=== PATIENT | male | born 1980 | race Caucasian/White ===

== ENCOUNTER 2018-03-31 08:04 | Emergency (ER) | payer OTHER ==
[2018-03-31] MEDS ORDERED: KETOROLAC 30 MG/ML INJ ONE (08:26)
[2018-03-31] MEDS ORDERED: NA CHLORIDE 0.9% 1,000 ML ONE (08:26)
[2018-03-31 08:33] LABS: Absolute Lymphocytes (CBC) 2.4 K/uL (0.7-4.9); Absolute Monocytes 0.5 K/uL (0.1-1.3); Absolute Neutrophil 3.3 K/uL (1.8-8.0); Basophils % 0.7 % (0-1.3); Eosinophils % 2.9 % (0-4.4); Hematocrit 46.2 % (39.6-49.0); Lymphocytes % 36.8 % (15.3-44.8); MCH 30.1 pg (27.0-35.0); MCV 86.3 fL (80-100); MPV 7.9 fL (7.6-11.3); Monocytes % 7.8 % (3.3-12.3); RBC Red Blood Cell Count 5.36 M/uL (4.33-5.43)
[2018-03-31] MEDS ORDERED: FENTANYL CITR 100 MCG/2 ML ONE (08:39)
[2018-03-31 08:48] LABS: Potassium 3.5 mmol/L (3.5-5.1)
--- NOTE | 2018-03-31 10:27 | RAD REPORT ---
EXAM DESCRIPTION: US - Renal Ultrasound-Limited - 03/31/2018 9:28 am CLINICAL HISTORY: Right flank pain COMPARISON: CT study March 19 FINDINGS: Limited ultrasound was performed of the right kidney and bladder. The right kidney measures 11.9 x 6.1 x 5.3 cm. Renal cortical thickness and echogenicity are normal. Mild right-sided hydronephrosis is present new or progressive from the March 19 CT study. No susp icious solid or cystic mass identified. No bladder wall thickening or mass. No intraluminal stone or mass. Bladder volume was 413 milliliters. IMPRESSION: Mild right-sided hydronephrosis new or progressive from March 19 CT imaging. No urinary bladder abnormality.
[2018-03-31 11:13] LABS: Urine Bacteria NONE SEEN /HPF (NONE SEEN); Urine Culture Reflex Order NOT NEEDED
--- NOTE | 2018-03-31 11:29 | ER ---
Nurse's Notes [facility] Name: Reymundo Reece Age: 37 yrs Sex: Male : 1980 Arrival Date: 03/31/2018 Time: 08:05 Bed 19 Private MD: Sahil Wooten Diagnosis: Calculus of kidney and ureter;Hydronephrosis with renal and ureteral calculous obstruction Presentation: 03/31 08:10 Presenting complaint: Patient states: Pt. was seen on March [address] done, rb1 it showed that he had kidney stones without any blockage. Transition of care: patient was not received from another setting of care. Onset of symptoms was March 31, 2018 at 07:00. Risk Assessment: Do you want to hurt yourself or someone else? Patient reports no desire to harm self or others. Initial Sepsis Screen: Does the patient meet any 2 criteria? No. Patient's initial sepsis screen is negative. Does the patient have a suspected source of infection? No. Patient's initial sepsis screen is negative. Care prior to arrival: Medication(s) given: Tramadol 50 mg PO and Tamsulosin 0.4 mg were taken at 0715. 08:10 Method Of Arrival: Ambulatory rb1 08:10 Acuity: KIM 3 rb1 Triage Assessment: 08:10 General: Appears uncomfortable, Behavior is calm, cooperative, Denies fever. Pain: rb1 Complains of pain in right lower quadrant Pain radiates to right groin Pain currently is 10 out of 10 on a pain scale. Pain began 0700 this morning. Neuro: Level of Consciousness is awake, alert, obeys commands, Oriented to person, place, time, situation. Cardiovascular: Capillary refill < 3 seconds is brisk in bilateral fingers. Respiratory: Airway is patent Respiratory effort is even, unlabored, Respiratory pattern is regular, symmetrical. GI: No signs and/or symptoms were reported involving the gastrointestinal system. : No signs and/or symptoms were reported regarding the genitourinary system. Derm: Skin is pink, warm \T\ dry. 08:10 GI: Reports nausea. rb1 Historical: - Allergies: 08:10 No Known Allergies; rb1 - Home Meds: 08:10 tramadol 50 mg Oral tab 1 tab every 6 hours [Active]; tamsulosin 0.4 mg oral cp24 1 cap rb1 once daily [Active]; - PMHx: 08:10 Kidney stones; rb1 - PSHx: 08:10 right shoulder; rb1 - Immunization history:: Adult Immunizations up to date. - Social history:: Smoking status: Patient/guardian denies using tobacco. - Ebola Screening: : Patient negative for fever greater than or equal to 101.5 degrees Fahrenheit, and additional compatible Ebola Virus Disease symptoms. Screenin:10 Abuse screen: Denies threats or abuse. Tuberculosis screening: No symptoms or risk rb1 factors identified. Fall Risk None identified. 08:30 Nutritional screening: No deficits noted. ss Assessment: 08:20 General: Appears uncomfortable, Behavior is cooperative, restless. Pain: Pain currently em is 10 out of 10 on a pain scale. Quality of pain is described as sharp, shooting, Pain began 2 hours ago. Neuro: Level of Consciousness is awake, alert, obeys commands, Oriented to person, place, time, situation. Cardiovascular: Patient's skin is warm and dry. Respiratory: Airway is patent Respiratory effort is even, unlabored, Respiratory pattern is tachypnea. GI: Abdomen is flat, Bowel sounds present X 4 quads. Abd is soft X 4 quads Abdomen is tender to palpation X 4 quads. : No signs and/or symptoms were reported regarding the genitourinary system. EENT: No signs and/or symptoms were reported regarding the EENT system. Derm: Skin is intact, Skin is clammy, Skin is normal. Musculoskeletal: Range of motion: intact in all extremities. 08:30 General: The previous assessment is accurate, call light remains within reach. Spouse ss at bedside. . 08:50 Reassessment: Patient appears in no apparent distress at this time. Patient and/or em family updated on plan of care and expected duration. Pain level reassessed. Patient is alert, oriented x 3, equal unlabored respirations, skin warm/dry/pink. rates pain 3/10 Patient states feeling better. Patient states symptoms have improved. 09:25 Reassessment: Patient appears in no apparent distress at this time. Patient and/or em family updated on plan of care and expected duration. Pain level reassessed. Patient is alert, oriented x 3, equal unlabored respirations, skin warm/dry/pink. currently does not want pain medication, reports pain is tolerable at 3/10, provider notified, will continue to monitor Patient states feeling better. 11:12 Reassessment: Patient appears in no apparent distress at this time. Patient and/or em family updated on plan of care and expected duration. Pain level reassessed. Patient is alert, oriented x 3, equal unlabored respirations, skin warm/dry/pink. Patient states feeling better. Vital Signs: 08:16 BP 140 / 90; Pulse 69; Resp 22; Temp 97.7(O); Pulse Ox 100% on R/A; Weight 92.99 kg; em Height 5 ft. 10 in. (177.80 cm) (R); Pain 10/10; 08:51 BP 119 / 90; Pulse 58; Resp 18; Pulse Ox 100% on R/A; Pain 3/10; em 09:53 BP 115 / 77; Pulse 77; Resp 16; Pulse Ox 100% on R/A; Pain 3/10; em 11:13 BP 120 / 77; Pulse 68; Resp 18; Pulse Ox 97% on R/A; em 08:16 Body Mass Index 29.42 (92.99 kg, 177.80 cm) em ED Course: 08:05 Patient arrived in ED. sb2 08:05 Sahil Wooten MD is Private Physician. sb2 08:09 Casper Lucas MD is Attending Physician. gs 08:10 Arm band placed on right wrist. rb1 08:10 Patient has correct armband on for positive identification. Bed in low position. Call rb1 light in reach. Side rails up X 1. Pulse ox on. NIBP on. Warm blanket given. 08:13 Destinee Curtis, RN is Primary Nurse. rb1 08:20 Initial lab(s) drawn, by me, sent to lab. Inserted saline lock: 20 gauge in left em antecubital area, using aseptic technique. Blood collected. 08:23 Triage completed. rb1 09:16 Ultrasound completed. Patient tolerated well. sg3 09:18 US Rp Exam Limited In Process Unspecified. EDMS 11:28 Russ Swift MD is Referral Physician. gs 11:50 No provider procedures requiring assistance completed. IV discontinued, intact, em bleeding controlled, No redness/swelling at site. Pressure dressing applied. Administered Medications: 08:21 Drug: TORadol 30 mg Route: IVP; Site: left antecubital; ss 08:39 Follow up: Response: No adverse reaction; Pain is decreased em 08:24 Drug: NS 0.9% 1000 ml Route: IV; Rate: 1 bolus; Site: left antecubital; ss 10:18 Drug: fentaNYL (PF) 25 mcg Route: IVP; Site: left antecubital; ss 10:55 Follow up: Response: No adverse reaction; Pain is decreased em Outcome: 11:28 Discharge ordered by . 11:50 Discharged to home ambulatory, with family. em 11:50 Condition: good 11:50 Discharge instructions given to patient, family, Instructed on discharge instructions, follow up and referral plans. medication usage, Demonstrated understanding of instructions, follow-up care, medications, Prescriptions given X 2. 11:50 Patient left the ED. em Signatures: Dispatcher [employer] EDMS Ignacio Huddleston, LINUX UNIX ENGINEER LINUX UNIX ENGINEER em Poonam Murillo RN RN ss Barber, Rebecca, RN RN rb1 Casper Lucas MD MD Deisi Valenzuela 3 Kristie Davidson sb2 Corrections: (The following items were deleted from the chart) 08:37 08:16 BP 140 / 90; Pulse 69bpm; Resp 22bpm; Pulse Ox 100% RA; 92.99 kg; Height 5 ft. 10 em in. Reported; BMI: 29.4; Pain 10/10; rb1
--- NOTE | 2018-03-31 11:29 | EDPHYS ---
Physician Documentation [facility] Name: Reymundo Reece Age: 37 yrs Sex: Male : 1980 Arrival Date: 03/31/2018 Time: 08:05 Bed 19 Private MD: Sahil Wooten ED Physician Casper Lucas HPI: 03/31 11:25 This 37 yrs old Male presents to ER via Ambulatory with complaints of gs Possible Kidney Stone. 11:25 The patient complains of pain in the right low back. Onset: The symptoms/episode gs began/occurred suddenly, today. Modifying factors: The symptoms are alleviated by nothing. the symptoms are aggravated by nothing. Associated signs and symptoms: Pertinent positives: nausea. Severity of pain: At its worst the pain was moderate in the emergency department the pain is unchanged. The patient has experienced a previous episode, last week. The patient has been recently seen by a physician: Dr. granado. Historical: - Allergies: 08:10 No Known Allergies; rb1 - Home Meds: 08:10 tramadol 50 mg Oral tab 1 tab every 6 hours [Active]; tamsulosin 0.4 mg oral cp24 1 cap rb1 once daily [Active]; - PMHx: 08:10 Kidney stones; rb1 - PSHx: 08:10 right shoulder; rb1 - Immunization history:: Adult Immunizations up to date. - Social history:: Smoking status: Patient/guardian denies using tobacco. - Ebola Screening: : Patient negative for fever greater than or equal to 101.5 degrees Fahrenheit, and additional compatible Ebola Virus Disease symptoms. ROS: 11:25 Constitutional: Negative for fever. gs 11:25 Abdomen/GI: Negative for abdominal pain. 11:25 All other systems are negative. Exam: 11:25 Head/Face: Normocephalic, atraumatic. Eyes: Pupils equal round and reactive to light, gs extra-ocular motions intact. Lids and lashes normal. Conjunctiva and sclera are non-icteric and not injected. Cornea within normal limits. Periorbital areas with no swelling, redness, or edema. 11:25 ENT: Nares patent. No nasal discharge, no septal abnormalities noted. Tympanic membranes are normal and external auditory canals are clear. Oropharynx with no redness, swelling, or masses, exudates, or evidence of obstruction, uvula midline. Mucous membranes moist. Neck: Trachea midline, no thyromegaly or masses palpated, and no cervical lymphadenopathy. Supple, full range of motion without nuchal rigidity, or vertebral point tenderness. No Meningismus. Chest/axilla: Normal chest wall appearance and motion. Nontender with no deformity. No lesions are appreciated. Cardiovascular: Regular rate and rhythm with a normal S1 and S2. No gallops, murmurs, or rubs. Normal PMI, no JVD. No pulse deficits. Respiratory: Lungs have equal breath sounds bilaterally, clear to auscultation and percussion. No rales, rhonchi or wheezes noted. No increased work of breathing, no retractions or nasal flaring. Abdomen/GI: Soft, non-tender, with normal bowel sounds. No distension or tympany. No guarding or rebound. No evidence of tenderness throughout. Skin: Warm, dry with normal turgor. Normal color with no rashes, no lesions, and no evidence of cellulitis. MS/ Extremity: Pulses equal, no cyanosis. Neurovascular intact. Full, normal range of motion. Neuro: Awake and alert, GCS 15, oriented to person, place, time, and situation. Cranial nerves II-XII grossly intact. Motor strength 5/5 in all extremities. Sensory grossly intact. Cerebellar exam normal. Normal gait. 11:25 Constitutional: The patient appears alert, awake. 11:25 Constitutional: The patient appears uncomfortable. 11:25 Back: pain, that is moderate, of the right mid back. Vital Signs: 08:16 BP 140 / 90; Pulse 69; Resp 22; Temp 97.7(O); Pulse Ox 100% on R/A; Weight 92.99 kg; em Height 5 ft. 10 in. (177.80 cm) (R); Pain 10/10; 08:51 BP 119 / 90; Pulse 58; Resp 18; Pulse Ox 100% on R/A; Pain 3/10; em 09:53 BP 115 / 77; Pulse 77; Resp 16; Pulse Ox 100% on R/A; Pain 3/10; em 11:13 BP 120 / 77; Pulse 68; Resp 18; Pulse Ox 97% on R/A; em 08:16 Body Mass Index 29.42 (92.99 kg, 177.80 cm) em MDM: 08:15 Patient medically screened. gs 11:25 Differential diagnosis: nephrolithiasis, pyelonephritis, UTI. Data reviewed: vital gs signs, nurses notes. Counseling: I had a detailed discussion with the patient and/or guardian regarding: the historical points, exam findings, and any diagnostic results supporting the discharge/admit diagnosis, lab results, radiology results, the need for outpatient follow up, a urologist. Response to treatment: the patient's symptoms have resolved after treatment, the patient's condition has returned to base line. 03/31 08:20 Order name: CBC with Diff; Complete Time: 09:28 gs 03/31 08:20 Order name: Basic Metabolic Panel; Complete Time: 09:28 gs 03/31 08:20 Order name: Urine Microscopic Only; Complete Time: 11:31 gs 03/31 08:28 Order name: US Rp Exam Limited; Complete Time: 10:41 gs 03/31 10:15 Order name: Urine Dipstick--Ancillary (enter results); Complete Time: 11:31 eb 03/31 08:20 Order name: Urine Dipstick-Ancillary (obtain specimen); Complete Time: 10:18 gs Administered Medications: 08:21 Drug: TORadol 30 mg Route: IVP; Site: left antecubital; ss 08:39 Follow up: Response: No adverse reaction; Pain is decreased em 08:24 Drug: NS 0.9% 1000 ml Route: IV; Rate: 1 bolus; Site: left antecubital; ss 10:18 Drug: fentaNYL (PF) 25 mcg Route: IVP; Site: left antecubital; ss 10:55 Follow up: Response: No adverse reaction; Pain is decreased em Disposition: 03/31/18 11:28 Discharged to Home. Impression: Calculus of kidney and ureter, Hydronephrosis with renal and ureteral calculous obstruction. - Condition is Stable. - Discharge Instructions: Kidney Stones, Hydronephrosis. - Prescriptions for Naprosyn 500 mg Oral Tablet - take 1 tablet by ORAL route 2 times per day take with food; 20 tablet. Tylenol- Codeine #4 300-60 mg Oral Tablet - take 1 tablet by ORAL route every 6 hours As needed; 12 tablet. - Medication Reconciliation Form, Thank You Letter, Antibiotic Education, Prescription Opioid Use form. - Follow up: Russ Swift MD; When: 2 - 3 days; Reason: Re-evaluation by your physician. Signatures: Dispatcher [employer] EDIgnacio Farrar, CHURN DRILLER CHURN DRILLER em Poonam Murillo RN RN ss Destinee Curtis RN RN rb1 Casper Lucas MD MD gs Corrections: (The following items were deleted from the chart) 11:50 11:28 03/31/2018 11:28 Discharged to Home. Impression: Calculus of kidney and ureter; em Hydronephrosis with renal and ureteral calculous obstruction. Condition is Stable. Forms are Medication Reconciliation Form, Thank You Letter, Antibiotic Education, Prescription Opioid Use. Follow up: Russ Swift; When: 2 - 3 days; Reason: Re-evaluation by your physician. gs
[2018-03-31 11:31] LABS: Urine Blood 1+ (NEG); Urine Glucose NEGATIVE (NEG); Urine Protein NEGATIVE (NEG); Urine Specific Gravity 1.015 (1.005-1.030)
== END 2018-03-31 11:50 | disposition home or self-care (01) ==
LOC: ER 08:04
DX: N13.2 Hydronephrosis with renal and ureteral calculous obstruction (principal)
CPT/HCPCS: 36415; 76775; 80048; 81003; 81015; 85025; 96374; 96375; 99284; J3010; J7030

== ENCOUNTER 2020-02-22 07:32 | Emergency (ER) | payer OTHER ==
--- NOTE | 2020-02-22 08:07 | ER ---
Nurse's Notes [facility] Name: Reymundo Reece Age: 39 yrs Sex: Male : 1980 Arrival Date: 02/22/2020 Time: 07:37 Bed 7 Private MD: Diagnosis: Contusion of right knee;Pain in right knee-strain Presentation: 02/21 07:48 Chief complaint: Patient states: got kicked in the right knee by a cow 1 week ago, em reports swelling and pain afterwards, ambulated to the room. Coronavirus screen: Client denies travel out of the [place] in the last 14 days. Ebola Screen: Patient negative for fever greater than or equal to 101.5 degrees Fahrenheit, and additional compatible Ebola Virus Disease symptoms Patient denies exposure to infectious person. Patient denies travel to an Ebola-affected area in the 21 days before illness onset. No symptoms or risks identified at this time. Initial Sepsis Screen: Does the patient meet any 2 criteria? No. Patient's initial sepsis screen is negative. Does the patient have a suspected source of infection? No. Patient's initial sepsis screen is negative. Risk Assessment: Do you want to hurt yourself or someone else? Patient reports no desire to harm self or others. Onset of symptoms was February 15, 2020. 07:48 Method Of Arrival: Ambulatory em 07:48 Acuity: KIM 4 em Historical: - Allergies: 07:51 No Known Allergies; em - PMHx: 07:51 Kidney stones; em - PSHx: 07:51 None; em - Immunization history:: Flu vaccine is not up to date. - Social history:: Smoking status: Patient denies any tobacco usage or history of. - Family history:: not pertinent. Screenin:41 Abuse screen: Denies threats or abuse. Nutritional screening: No deficits noted. em Tuberculosis screening: No symptoms or risk factors identified. Fall Risk None identified. Assessment: 07:41 General: Appears in no apparent distress. comfortable, Behavior is calm, cooperative, em appropriate for age. Pain: Complains of pain in right knee Pain currently is 4 out of 10 on a pain scale. Neuro: Level of Consciousness is awake, alert, obeys commands, Oriented to person, place, time, situation, Appropriate for age. Cardiovascular: Capillary refill < 3 seconds Patient's skin is warm and dry. Respiratory: Airway is patent Respiratory effort is even, unlabored, Respiratory pattern is regular, symmetrical. GI: Abdomen is flat. Derm: Skin is intact, is healthy with good turgor, Skin is pink, warm \T\ dry. Musculoskeletal: Range of motion: intact in all extremities, Swelling present in right knee. 08:05 Reassessment: x-ray at bedside. em 08:08 Reassessment: pt up for discharge, pending x-ray results. em Vital Signs: 07:48 BP 131 / 84; Pulse 71; Resp 18; Temp 98.1; Pulse Ox 98% on R/A; Weight 97.52 kg; Height em 5 ft. 11 in. (180.34 cm); Pain 4/10; 07:48 Body Mass Index 29.99 (97.52 kg, 180.34 cm) em ED Course: 07:37 Patient arrived in ED. mr 07:41 Ignacio Huddleston, RN is Primary Nurse. em 07:41 Patient has correct armband on for positive identification. Placed in gown. Bed in low em position. Call light in reach. Adult w/ patient. Pulse ox on. NIBP on. 07:42 Freddy Nichols MD is Attending Physician. jose m 07:42 Arm band placed on. em 07:50 Triage completed. em 08:06 Trevor Self MD is Referral Physician. jose m 08:14 Knee Right 3 View XRAY In Process Unspecified. EDMS 08:32 No provider procedures requiring assistance completed. Patient did not have IV access em during this emergency room visit. Administered Medications: 08:01 Drug: Motrin 800 mg Route: PO; em 08:30 Follow up: Response: No adverse reaction em 08:01 Drug: Garrison 10 mg-325 mg 1 tabs Route: PO; em 08:30 Follow up: Response: No adverse reaction; Marked relief of symptoms; Pain is decreased em Outcome: 08:06 Discharge ordered by . jose m 08:32 Discharged to home ambulatory, with family. em 08:32 Condition: stable 08:32 Discharge instructions given to patient, family, Instructed on discharge instructions, follow up and referral plans. medication usage, Demonstrated understanding of instructions, follow-up care, medications, Prescriptions given X 3. 08:36 Patient left the ED. em Signatures: Dispatcher [employer] EDMI Simone, Freddy, MD MD jose m Gamble, Olesya Ignacio Ovalle, RN RN em
--- NOTE | 2020-02-22 08:07 | EDPHYS ---
Physician Documentation [facility] Name: Reymundo Reece Age: 39 yrs Sex: Male : 1980 Arrival Date: 02/22/2020 Time: 07:37 Bed 7 Private MD: ED Physician Freddy Nichols HPI: 02/21 07:59 This 39 yrs old Male presents to ER via Ambulatory with complaints of Knee jose m Injury. 07:59 The patient presents with decreased range of motion, pain, swelling, tenderness. The jose m complaints affect the lateral aspect of right knee, medial aspect of right knee and right knee. Context: The problem was sustained outdoors, resulted from kicked by a steer. Onset: The symptoms/episode began/occurred last week. Modifying factors: The symptoms are alleviated by elevating leg, remaining still, the symptoms are aggravated by movement, weight bearing, bending knee. Associated signs and symptoms: Pertinent positives: swelling. Treatment prior to arrival includes: no previous treatment. Severity of symptoms: At their worst the symptoms were mild, moderate, in the emergency department the symptoms have improved, mildly. The patient has not experienced similar symptoms in the past. Historical: - Allergies: 07:51 No Known Allergies; em - PMHx: 07:51 Kidney stones; em - PSHx: 07:51 None; em - Immunization history:: Flu vaccine is not up to date. - Social history:: Smoking status: Patient denies any tobacco usage or history of. - Family history:: not pertinent. ROS: 07:59 Constitutional: Negative for fever, chills, and weight loss, Eyes: Negative for injury, jose m pain, redness, and discharge, ENT: Negative for injury, pain, and discharge, Neck: Negative for injury, pain, and swelling, Cardiovascular: Negative for chest pain, palpitations, and edema, Respiratory: Negative for shortness of breath, cough, wheezing, and pleuritic chest pain, Abdomen/GI: Negative for abdominal pain, nausea, vomiting, diarrhea, and constipation, Back: Negative for injury and pain, : Negative for injury, bleeding, discharge, and swelling, Skin: Negative for injury, rash, and discoloration, Neuro: Negative for headache, weakness, numbness, tingling, and seizure, Psych: Negative for depression, anxiety, suicide ideation, homicidal ideation, and hallucinations, Allergy/Immunology: Negative for hives, rash, and allergies, Endocrine: Negative for neck swelling, polydipsia, polyuria, polyphagia, and marked weight changes, Hematologic/Lymphatic: Negative for swollen nodes, abnormal bleeding, and unusual bruising. 07:59 MS/extremity: Positive for decreased range of motion, pain, swelling, of the lateral aspect of right knee, medial aspect of right knee and right knee. Exam: 07:59 Constitutional: This is a well developed, well nourished patient who is awake, alert, jose m and in no acute distress. Head/Face: Normocephalic, atraumatic. Eyes: Pupils equal round and reactive to light, extra-ocular motions intact. Lids and lashes normal. Conjunctiva and sclera are non-icteric and not injected. Cornea within normal limits. Periorbital areas with no swelling, redness, or edema. ENT: Nares patent. No nasal discharge, no septal abnormalities noted. Tympanic membranes are normal and external auditory canals are clear. Oropharynx with no redness, swelling, or masses, exudates, or evidence of obstruction, uvula midline. Mucous membranes moist. Neck: Trachea midline, no thyromegaly or masses palpated, and no cervical lymphadenopathy. Supple, full range of motion without nuchal rigidity, or vertebral point tenderness. No Meningismus. Chest/axilla: Normal chest wall appearance and motion. Nontender with no deformity. No lesions are appreciated. Cardiovascular: Regular rate and rhythm with a normal S1 and S2. No gallops, murmurs, or rubs. Normal PMI, no JVD. No pulse deficits. Respiratory: Lungs have equal breath sounds bilaterally, clear to auscultation and percussion. No rales, rhonchi or wheezes noted. No increased work of breathing, no retractions or nasal flaring. Abdomen/GI: Soft, non-tender, with normal bowel sounds. No distension or tympany. No guarding or rebound. No evidence of tenderness throughout. Back: No spinal tenderness. No costovertebral tenderness. Full range of motion. Male : Normal genitalia with no discharge or lesions. Skin: Warm, dry with normal turgor. Normal color with no rashes, no lesions, and no evidence of cellulitis. Neuro: Awake and alert, GCS 15, oriented to person, place, time, and situation. Cranial nerves II-XII grossly intact. Motor strength 5/5 in all extremities. Sensory grossly intact. Cerebellar exam normal. Normal gait. Psych: Awake, alert, with orientation to person, place and time. Behavior, mood, and affect are within normal limits. 07:59 Musculoskeletal/extremity: ROM: full active range of motion, full passive range of motion, Circulation is intact in all extremities. Sensation intact. Compartment Syndrome exam of affected extremity: is normal. Joints: the right knee displays pain at rest, painful range of motion, swelling, tenderness, Weight bearing: able to fully bear weight, DVT Exam: negative Homans' sign noted on exam, no appreciated bluish discoloration, no erythema, no increased warmth, pain, swelling, tenderness. 08:15 Musculoskeletal/extremity: Tendon exam: specific tendon testing normal through active jose m and passive range of motion pain on palpation of lateral collateral liagament, albaro negative, no effision. Vital Signs: 07:48 BP 131 / 84; Pulse 71; Resp 18; Temp 98.1; Pulse Ox 98% on R/A; Weight 97.52 kg; Height em 5 ft. 11 in. (180.34 cm); Pain 4/10; 07:48 Body Mass Index 29.99 (97.52 kg, 180.34 cm) em MDM: 07:42 Patient medically screened. [facility] 08:04 Differential diagnosis: closed fracture, contusion, tendonitis. Data reviewed: vital jose m signs, nurses notes, radiologic studies, plain films. Data interpreted: hospital monitor: not applicable for this patient encounter. rate is 71 beats/min, rhythm is normal sinus rhythm, Pulse oximetry: on room air is 98 %. Test interpretation: by ED physician or midlevel provider: plain radiologic studies. Counseling: I had a detailed discussion with the patient and/or guardian regarding: the historical points, exam findings, and any diagnostic results supporting the discharge/admit diagnosis, radiology results, the need for outpatient follow up, for definitive care, a orthopedic surgeon. 02/21 07:48 Order name: Knee Right 3 View XRAY [facility] 02/21 07:48 Order name: Crutch Training; Complete Time: 08:01 jose m 02/21 07:49 Order name: Knee Immobilizer; Complete Time: 08:02 [facility] Administered Medications: 08:01 Drug: Motrin 800 mg Route: PO; em 08:30 Follow up: Response: No adverse reaction em 08:01 Drug: Trilla 10 mg-325 mg 1 tabs Route: PO; em 08:30 Follow up: Response: No adverse reaction; Marked relief of symptoms; Pain is decreased em Disposition: 02/22/20 08:06 Discharged to Home. Impression: Contusion of right knee, Pain in right knee - strain. - Condition is Stable. - Discharge Instructions: Joint Pain, How to Use a Knee Brace, Musculoskeletal Pain, Knee Pain, Cryotherapy, [id number], Cryotherapy, Knee Pain, [id number], Joint Pain, [id number]. - Prescriptions for Ibuprofen 600 mg Oral Tablet - take 1 tablet by ORAL route every 6 hours As needed take with food; 30 tablet. Tylenol- Codeine #3 300-30 mg Oral Tablet - take 2 tablet by ORAL route every 6 hours As needed; 30 tablet. - Medication Reconciliation Form, Thank You Letter, Antibiotic Education, Prescription Opioid Use form. - Follow up: Private Physician; When: 2 - 3 days; Reason: Recheck today's complaints, Continuance of care, Re-evaluation by your physician. Follow up: Trevor Self MD; When: 2 - 3 days; Reason: Recheck today's complaints, Re-evaluation by your physician. - Problem is new. - Symptoms have improved. Signatures: Dispatcher [employer] Freddy Keller MD MD cha Munoz, Edgar RN RN em Corrections: (The following items were deleted from the chart) 08:02 07:48 Ice pack ordered. [facility] em 08:36 08:06 02/22/2020 08:06 Discharged to Home. Impression: Contusion of right knee; Pain in em right knee - strain. Condition is Stable. Forms are Medication Reconciliation Form, Thank You Letter, Antibiotic Education, Prescription Opioid Use. Follow up: Private Physician; When: 2 - 3 days; Reason: Recheck today's complaints, Continuance of care, Re-evaluation by your physician. Follow up: Trevor Self; When: 2 - 3 days; Reason: Recheck today's complaints, Re-evaluation by your physician. Problem is new. Symptoms have improved. jose m
[2020-02-22] MEDS ORDERED: HYDROCODONE/APAP 10/325 TAB ONE (08:09)
[2020-02-22] MEDS ORDERED: IBUPROFEN 400 MG TAB ONE (08:09)
[2020-02-22 08:46] VITALS: BP 131/84; TEMP 98.1; O2SAT 98
--- NOTE | 2020-02-22 09:30 | RAD REPORT ---
EXAM DESCRIPTION: RAD - Knee Right 3 View - 02/22/2020 8:14 am CLINICAL HISTORY: Right knee pain status post injury FINDINGS: No fracture or dislocation is seen.
== END 2020-02-22 08:36 | disposition home or self-care (01) ==
LOC: ER 07:32
DX: S80.01XA Contusion of right knee, initial encounter (principal); W55.82XA Struck by other mammals, initial encounter; Y93.89 Activity, other specified; Y92.89 Other specified places as the place of occurrence of the external cause
CPT/HCPCS: 99284

== ENCOUNTER → 2023-04-05 | Emergency (ER) | payer BC ==
--- NOTE | 2023-04-05 13:06 | RAD REPORT ---
EXAM DESCRIPTION: US - Scrotum Testicles - 04/05/2023 12:48 pm CLINICAL HISTORY: Testicular pain COMPARISON: None FINDINGS: Right testicle measures 4.2 x 2.1 x 2.6 centimeters. Echotexture is homogeneous. Normal bl ood flow Left testicle measures 4 x 1.8 x 2.8 centimeters. Echotexture is mildly inhomogeneous. Normal blood f low The epididymides are normal in size and echotexture. Normal blood flow is seen. Bilateral varicocele IMPRESSION: Bilateral varicoceles
--- NOTE | 2023-04-05 13:50 | ER ---
Nurse's Notes [facility] Name: Reymundo Reece Age: 43 yrs Sex: Male : 1980 Arrival Date: 04/05/2023 Time: 11:54 Bed 2 Private MD: Bird Castro V Diagnosis: Right testicular pain Presentation: 04/05 12:00 Chief complaint: Patient states: R GROIN PAIN FROM R FLANK. Coronavirus screen: At this bp time, the client does not indicate any symptoms associated with coronavirus-19. Ebola Screen: No symptoms or risks identified at this time. Initial Sepsis Screen: Does the patient meet any 2 criteria? No. Patient's initial sepsis screen is negative. Does the patient have a suspected source of infection? No. Patient's initial sepsis screen is negative. Risk Assessment: Do you want to hurt yourself or someone else? Patient reports no desire to harm self or others. Onset of symptoms is unknown. 12:00 Method Of Arrival: Ambulatory bp 12:00 Acuity: KIM 3 bp Triage Assessment: 12:00 General: Appears in no apparent distress. Behavior is calm, cooperative, appropriate bp for age. Pain: Complains of pain in groin and right femoral area. Historical: - Allergies: 11:58 No Known Allergies; ll1 - PMHx: 11:58 Kidney stones; ll1 - Immunization history:: Adult Immunizations up to date. - Social history:: Smoking status: Patient denies any tobacco usage or history of. Screenin:09 [facility] ED Fall Risk Assessment (Adult) History of falling in the last 3 months, ld1 including since admission No falls in past 3 months (0 pts). Abuse screen: Denies threats or abuse. Denies injuries from another. Nutritional screening: No deficits noted. Tuberculosis screening: No symptoms or risk factors identified. Assessment: 12:09 General: Appears in no apparent distress. uncomfortable, Behavior is calm, cooperative, ld1 appropriate for age. Pain: Complains of pain in pelvis and right femoral area and groin Pain does not radiate. Pain currently is 8 out of 10 on a pain scale. Quality of pain is described as throbbing, Pain began 2-3 days ago. Is continuous. Neuro: Level of Consciousness is awake, alert, obeys commands, Oriented to person, place, time, situation. Cardiovascular: Capillary refill < 3 seconds Patient's skin is warm and dry. Respiratory: Airway is patent Respiratory effort is even, unlabored. GI: Abdomen is flat, non-distended. : No signs and/or symptoms were reported regarding the genitourinary system. EENT: No signs and/or symptoms were reported regarding the EENT system. Derm: No signs and/or symptoms reported regarding the dermatologic system. Musculoskeletal: No signs and/or symptoms reported regarding the musculoskeletal system. 13:08 Reassessment: Patient appears in no apparent distress at this time. No changes from kc6 previously documented assessment. Patient and/or family updated on plan of care and expected duration. Pain level reassessed. Patient is alert, oriented x 3, equal unlabored respirations, skin warm/dry/pink. Vital Signs: 12:00 BP 132 / 93; Pulse 64; Resp 16; Temp 98; Pulse Ox 100% ; Weight 97.52 kg; Height 5 ft. bp 11 in. ; 12:09 BP 131 / 96; Pulse 70; Resp 18; Pulse Ox 100% on R/A; Pain 8/10; ld1 12:00 Body Mass Index 29.99 (97.52 kg, 180.34 cm) bp 12:09 Pain Scale: Adult ld1 ED Course: 11:56 Patient arrived in ED. rg4 11:56 Bird Castro MD is Private Physician. rg4 11:58 Arm band placed on Patient placed in an exam room, on a stretcher. ll1 12:01 Triage completed. bp 12:04 Kain Fontana DO is Attending Physician. ms3 12:09 Bridget Fontana RN is Primary Nurse. ld1 12:09 Patient has correct armband on for positive identification. Placed in gown. Bed in low ld1 position. Call light in reach. Side rails up X2. Pulse ox on. NIBP on. Door closed. Noise minimized. Warm blanket given. 12:09 No provider procedures requiring assistance completed. Inserted saline lock: 20 gauge ld1 in left antecubital area, using aseptic technique. Blood collected. 12:50 US Scrotum Testicles In Process Unspecified. EDMS 13:12 Crystal Nunn, AGUSTÍN is Primary Nurse. iw 13:49 Tony Schafer MD is Referral Physician. ms3 14:15 IV discontinued, intact, bleeding controlled, No redness/swelling at site. Pressure iw dressing applied. Administered Medications: No medications were administered Medication: 14:15 VIS not applicable for this client. iw Outcome: 13:49 Discharge ordered by . ms3 14:15 Discharged to home ambulatory, iw 14:15 Condition: good 14:15 Discharge instructions given to patient, Instructed on discharge instructions, follow up and referral plans. Demonstrated understanding of instructions, follow-up care, 14:15 Patient left the ED. iw Signatures: Dispatcher [employer] EDMS Crystal Nunn, RN Mariam Duong rg4 Domo Lopez RN RN bp Cecil Gilbert RN RN ll1 Kain Fontana, DO ms3 Bridget Fontana RN RN ld1 Jessie Lee RN RN kc6
--- NOTE | 2023-04-05 13:50 | EDPHYS ---
Physician Documentation [facility] Name: Reymundo Reece Age: 43 yrs Sex: Male : 1980 Arrival Date: 04/05/2023 Time: 11:54 Bed 2 Private MD: Bird Castro V ED Physician Kain Fontana HPI: 04/05 13:50 This 43 yrs old Male presents to ER via Ambulatory with complaints of Testicular Pain, ms3 Groin Pain. 13:50 43-year-old male with past medical history of kidney stones presents to the emergency ms3 department for right testicular discomfort x 1 week. Patient rates the discomfort a /10. Patient denies any alleviating or inciting factors. Patient denies penile discharge, or swelling. Historical: - Allergies: 11:58 No Known Allergies; ll1 - PMHx: 11:58 Kidney stones; ll1 - Immunization history:: Adult Immunizations up to date. - Social history:: Smoking status: Patient denies any tobacco usage or history of. ROS: 13:50 Constitutional: Negative for fever, and chills. Neck: Negative for injury, pain, and ms3 swelling, Cardiovascular: Negative for chest pain, and palpitations. Respiratory: Negative for shortness of breath, cough, wheezing, and pleuritic chest pain, Abdomen/GI: Negative for abdominal pain, nausea, vomiting, diarrhea, and constipation, 13:50 : Positive for testicular pain 13:50 All other systems are negative, Exam: 13:50 Constitutional: This is a well developed, well nourished patient who is awake, alert, ms3 and in no acute distress. Head/Face: Normocephalic, atraumatic. Neck: Trachea midline, no cervical lymphadenopathy. Supple, full range of motion without nuchal rigidity, or vertebral point tenderness. No Meningismus. Chest/axilla: Normal chest wall appearance and motion. Nontender with no deformity. Cardiovascular: Regular rate and rhythm with a normal S1 and S2. No gallops, murmurs, or rubs. Normal PMI, no JVD. No pulse deficits. Respiratory: Lungs have equal breath sounds bilaterally, clear to auscultation and percussion. No rales, rhonchi or wheezes noted. No increased work of breathing, no retractions or nasal flaring. Abdomen/GI: Soft, non-tender, with normal bowel sounds. No distension or tympany. No guarding or rebound. No evidence of tenderness throughout. Skin: Warm, dry with normal turgor. Normal color with no rashes, no lesions, and no evidence of cellulitis. 13:50 : Male external genitalia: penile discharge, is absent, swelling, is not appreciated, tenderness, of the right testicle is noted, of the epididymis area, that is mild, 13:50 : Male external genitalia: Cremasteric reflex intact, ms3 Vital Signs: 12:00 BP 132 / 93; Pulse 64; Resp 16; Temp 98; Pulse Ox 100% ; Weight 97.52 kg; Height 5 ft. bp 11 in. ; 12:09 BP 131 / 96; Pulse 70; Resp 18; Pulse Ox 100% on R/A; Pain 8/10; ld1 12:00 Body Mass Index 29.99 (97.52 kg, 180.34 cm) bp 12:09 Pain Scale: Adult ld1 MDM: 12:12 Patient medically screened. ms3 13:50 Differential diagnosis: Epididymitis versus varicocele versus hydrocele. Data reviewed: ms3 vital signs, nurses notes, radiologic studies, and as a result, I will discharge patient. Counseling: I had a detailed discussion with the patient and/or guardian regarding the historical points, exam findings, and any diagnostic results supporting the discharge/admit diagnosis, radiology results, the need for outpatient follow up, to return to the emergency department if symptoms worsen or persist or if there are any questions or concerns that arise at home. Special discussion: I discussed with the patient/guardian in detail that at this point there is no indication for admission to the hospital. It is understood, however, that if the symptoms persist or worsen the patient needs to return immediately for re-evaluation. ED course: Discussed ultrasound results with patient and his . Patient to follow-up with Dr. Schafer in 2 to 3 days. Patient understands and agrees with plan. All questions were answered. Return precautions discussed include worsening symptoms, or any other concerns. On reevaluation patient is alert and oriented x 4, no apparent distress, nontoxic-appearing, ambulatory emergency primary, speaking full sentences. 04/05 12:13 Order name: US Scrotum Testicles; Complete Time: 13:20 ms3 Administered Medications: No medications were administered Disposition Summary: 04/05/23 13:49 Discharge Ordered Notes: Location: Home ms3 Condition: Stable ms3 Diagnosis - Right testicular pain ms3 Followup: ms3 - With: Tony Schafer MD - When: 2 - 3 days - Reason: Recheck today's complaints Discharge Instructions: - Discharge Summary Sheet ms3 - Testicular Self-Exam ms3 - Varicocele ms3 Forms: - Medication Reconciliation Form ms3 - Thank You Letter ms3 - Antibiotic Education ms3 - Prescription Opioid Use ms3 - Patient Portal Instructions ms3 - Leadership Thank You Letter ms3 Signatures: Dispatcher [employer] EDDomo Bellamy RN RN bp Cecil Gilbert RN RN ll1 Kain Fontana DO DO ms3
[2023-04-05 14:35] VITALS: BP 131/96; TEMP 98; O2SAT 100
== END ==
LOC: ER 11:54
DX: N50.811 Right testicular pain (principal)
CPT/HCPCS: 76870; 99284

== ENCOUNTER 2023-09-19 07:08 | Emergency (ER) | payer BC ==
[2023-09-19 07:38] LABS: Absolute Basophils 0.1 K/uL (0-0.5); Absolute Eosinophils 0.2 K/uL (0-0.5); Absolute Lymphocytes (CBC) 1.6 K/uL (0.7-4.9); Absolute Monocytes 0.7 K/uL (0.1-1.3); Absolute Neutrophil 5.8 K/uL (1.8-8.0); Basophils % 1.2 % (0-1.3); Eosinophils % 2.4 % (0-4.4); Hemoglobin 16.2 g/dL (13.6-17.9); MCH 30.6 pg (27.0-35.0); MCV 92.7 fL (80-100); MPV 7.2 fL (7.6-11.3); Monocytes % 8.1 % (3.3-12.3); Neutrophils % 69.3 % (41.7-73.7); Nucleated Red Blood Cells % 0.1 % (0-0); Platelets 364 thou/uL (152-406); RBC Red Blood Cell Count 5.29 M/uL (4.33-5.43); Red Cell Distribution Width 13.8 % (12.1-15.2)
[2023-09-19 07:47] LABS: PT Prothrombin Time 12.9 SECONDS (9.5-12.5); Protime INR 1.18
[2023-09-19 07:58] LABS: Albumin 3.5 g/dL (3.4-5.0); Albumin/Globulin Ratio 0.9 (1.1-1.8); Anion Gap 8.9 mEq/L (5.0-15.0); Bilirubin Total 1.1 mg/dL (0.2-1.0); Globulin 3.8 g/dL (2.3-3.5); Potassium 3.9 mEq/L (3.5-5.1); Protein, Total 7.3 g/dL (6.4-8.2)
[2023-09-19] MEDS ORDERED: KETOROLAC 30 MG/ML INJ ONE (08:05)
[2023-09-19] MEDS ORDERED: NA CHLORIDE 0.9% 1,000 ML ONE (08:06)
--- NOTE | 2023-09-19 08:13 | RAD REPORT ---
EXAM DESCRIPTION: US - Extrem Venous W Compress Keith - 09/19/2023 7:43 am CLINICAL HISTORY: Pain. COMPARISON: None. TECHNIQUE: Real-time sonographic evaluation of the bilateral lower extremity deep venous systems was performed. FINDINGS: Normal compressibility, flow augmentation, phasic flow and spontaneous flow is identified in both the left and right lower extremity deep venous systems. Some prominent bowels are seen along the right popliteal vein. No intraluminal filling defects seen. IMPRESSION: No evidence of DVT in either lower extremity.
--- NOTE | 2023-09-19 08:29 | ER ---
Nurse's Notes [facility] Name: Reymundo Reece Age: 43 yrs Sex: Male : 1980 Arrival Date: 09/19/2023 Time: 07:08 Bed 13 Private MD: Diagnosis: Unspecified symptoms and signs involving the musculoskeletal system;Pain in right lower leg Presentation: 09/18 07:18 Chief complaint: Patient states: he has been having right lower calf pain for 3 days. ap3 patient reports his pain is currently a 3/10 on the pain scale. Coronavirus screen: At this time, the client does not indicate any symptoms associated with coronavirus-19. Ebola Screen: No symptoms or risks identified at this time. Initial Sepsis Screen: Does the patient meet any 2 criteria? No. Patient's initial sepsis screen is negative. Does the patient have a suspected source of infection? No. Patient's initial sepsis screen is negative. Risk Assessment: Do you want to hurt yourself or someone else? Patient reports no desire to harm self or others. Onset of symptoms was September 16, 2023. 07:18 Method Of Arrival: Ambulatory ap3 07:18 Acuity: KIM 3 ap3 Triage Assessment: 07:19 General: Appears in no apparent distress. Behavior is calm, cooperative, appropriate ap3 for age. Pain: Complains of pain in right calf Pain currently is 3 out of 10 on a pain scale. Neuro: Level of Consciousness is awake, alert, obeys commands, Oriented to person, place, time, situation, Appropriate for age. Cardiovascular: Patient's skin is warm and dry. Respiratory: Airway is patent Respiratory effort is even, unlabored, Respiratory pattern is regular, symmetrical. Historical: - Allergies: 07:19 No Known Allergies; ap3 - Home Meds: 07:19 None [Active]; ap3 - PMHx: 07:19 Kidney stones; ap3 - Immunization history:: Client reports having NOT received the Covid vaccine. - Infectious Disease History:: Denies. - Social history:: Smoking status: Patient denies any tobacco usage or history of. - Family history:: not pertinent. Screenin:20 Abuse screen: Denies threats or abuse. Nutritional screening: No deficits noted. ap3 Tuberculosis screening: No symptoms or risk factors identified. 07:45 [facility] ED Fall Risk Assessment (Adult) History of falling in the last 3 months, bp including since admission No falls in past 3 months (0 pts). Assessment: 07:30 General: Appears in no apparent distress. uncomfortable, Behavior is appropriate for bp age. 08:15 Reassessment: No changes from previously documented assessment. Patient is alert, bp oriented x 3, equal unlabored respirations, skin warm/dry/pink. Vital Signs: 07:18 BP 174 / 99; Pulse 87; Resp 18; Temp 98.8(O); Pulse Ox 99% on R/A; Weight 97.52 kg; ap3 Height 5 ft. 11 in. ; Pain 3/10; 08:15 BP 151 / 98; Pulse 86; Resp 16; Pulse Ox 95% ; bp 09:01 BP 155 / 91; Pulse 84; Resp 16; Pulse Ox 100% ; bp 07:18 Body Mass Index 29.99 (97.52 kg, 180.34 cm) ap3 07:18 Pain Scale: Adult ap3 ED Course: 07:10 Patient arrived in ED. gm2 07:12 Domo Lopez, AGUSTÍN is Primary Nurse. bp 07:13 Freddy Nichols MD is Attending Physician. jose m 07:19 Triage completed. ap3 07:20 Arm band placed on right wrist. ap3 07:26 Initial lab(s) drawn, by me, sent to lab. Inserted saline lock: 22 gauge in right bp forearm, using aseptic technique. Blood collected. 07:45 US Extremity Venous W Compression Keith In Process Unspecified. EDMS 07:45 Patient has correct armband on for positive identification. Bed in low position. bp 07:45 Urine collected: clean catch specimen, clear. bp 08:28 Michelet Dempsey MD is Referral Physician. jose m 09:02 No provider procedures requiring assistance completed. IV discontinued, intact, bp bleeding controlled, No redness/swelling at site. Pressure dressing applied. 09:03 Provided Education on: N/A. bp Administered Medications: 07:45 Drug: NS 0.9% IV 1000 ml IV at 1 bolus Per protocol; 1000 mL bolus Route: IV; Rate: 1 bp bolus; Site: right forearm; 09:03 Follow up: IV Status: Completed infusion; IV Intake: 1000ml bp 07:45 Drug: Ketorolac IVP 30 mg IVP once Route: IVP; Site: right forearm; bp 09:04 Follow up: Response: No adverse reaction bp Medication: 09:03 VIS not applicable for this client. bp Intake: :03 IV: 1000ml; Total: 1000ml. bp Outcome: : Discharge ordered by . jose m 09:02 Discharged to home ambulatory, with family, bp 09:02 Condition: stable 09:02 Discharge instructions given to patient, Instructed on discharge instructions, follow up and referral plans. medication usage, Demonstrated understanding of instructions, follow-up care, medications, Prescriptions given X 2, 09:04 Patient left the ED. bp Signatures: Dispatcher [employer] EDMS Freddy Nichols MD MD cha Peltier, Brian, RN RN bp Briseyda Dubois RN RN ap3 Kinjal Mckeon [facility]
--- NOTE | 2023-09-19 08:29 | EDPHYS ---
Physician Documentation [facility] Name: Reymundo Reece Age: 43 yrs Sex: Male : 1980 Arrival Date: 09/19/2023 Time: 07:08 Bed 13 Private MD: AMILCAR Physician Freddy Nichols HPI: 09/18 07:27 This 43 yrs old Male presents to ER via Ambulatory with complaints of CALF jose m PAIN. 07:27 The patient presents with decreased range of motion, pain. The complaints affect the jose m right calf. Context: resulted from an unknown cause, the patient can fully bear weight. Onset: The symptoms/episode began/occurred 2 day(s) ago. Modifying factors: The symptoms are alleviated by remaining still, the symptoms are aggravated by movement. Associated signs and symptoms: The patient has no apparent associated signs or symptoms. Severity of symptoms: At their worst the symptoms were moderate, in the emergency department the symptoms are unchanged. The patient has not experienced similar symptoms in the past. Historical: - Allergies: 07:19 No Known Allergies; ap3 - Home Meds: 07:19 None [Active]; ap3 - PMHx: 07:19 Kidney stones; ap3 - Immunization history:: Client reports having NOT received the Covid vaccine. - Infectious Disease History:: Denies. - Social history:: Smoking status: Patient denies any tobacco usage or history of. - Family history:: not pertinent. ROS: 07:27 Constitutional: Negative for fever, chills, and weight loss, Eyes: Negative for injury, jose m pain, redness, and discharge, ENT: Negative for injury, pain, and discharge, Neck: Negative for injury, pain, and swelling, Cardiovascular: Negative for chest pain, palpitations, and edema, Respiratory: Negative for shortness of breath, cough, wheezing, and pleuritic chest pain, Abdomen/GI: Negative for abdominal pain, nausea, vomiting, diarrhea, and constipation, Back: Negative for injury and pain, : Negative for injury, bleeding, discharge, and swelling, Skin: Negative for injury, rash, and discoloration, Neuro: Negative for headache, weakness, numbness, tingling, and seizure, Psych: Negative for depression, anxiety, suicide ideation, homicidal ideation, and hallucinations, Allergy/Immunology: Negative for hives, rash, and allergies, Endocrine: Negative for neck swelling, polydipsia, polyuria, polyphagia, and marked weight changes, Hematologic/Lymphatic: Negative for swollen nodes, abnormal bleeding, and unusual bruising, 07:27 MS/extremity: Positive for pain, tenderness, of the right leg, Exam: 07:27 Constitutional: This is a well developed, well nourished patient who is awake, alert, jose m and in no acute distress. Head/Face: Normocephalic, atraumatic. Eyes: Pupils equal round and reactive to light, extra-ocular motions intact. Lids and lashes normal. Conjunctiva and sclera are non-icteric and not injected. Cornea within normal limits. Periorbital areas with no swelling, redness, or edema. ENT: Nares patent. No nasal discharge, no septal abnormalities noted. Tympanic membranes are normal and external auditory canals are clear. Oropharynx with no redness, swelling, or masses, exudates, or evidence of obstruction, uvula midline. Mucous membranes moist. Neck: Trachea midline, no thyromegaly or masses palpated, and no cervical lymphadenopathy. Supple, full range of motion without nuchal rigidity, or vertebral point tenderness. No Meningismus. Chest/axilla: Normal chest wall appearance and motion. Nontender with no deformity. No lesions are appreciated. Cardiovascular: Regular rate and rhythm with a normal S1 and S2. No gallops, murmurs, or rubs. Normal PMI, no JVD. No pulse deficits. Respiratory: Lungs have equal breath sounds bilaterally, clear to auscultation and percussion. No rales, rhonchi or wheezes noted. No increased work of breathing, no retractions or nasal flaring. Abdomen/GI: Soft, non-tender, with normal bowel sounds. No distension or tympany. No guarding or rebound. No evidence of tenderness throughout. Back: No spinal tenderness. No costovertebral tenderness. Full range of motion. Male : Normal genitalia with no discharge or lesions. Skin: Warm, dry with normal turgor. Normal color with no rashes, no lesions, and no evidence of cellulitis. Neuro: Awake and alert, GCS 15, oriented to person, place, time, and situation. Cranial nerves II-XII grossly intact. Motor strength 5/5 in all extremities. Sensory grossly intact. Cerebellar exam normal. Normal gait. Psych: Awake, alert, with orientation to person, place and time. Behavior, mood, and affect are within normal limits. 07:27 Musculoskeletal/extremity: ROM: full active range of motion, full passive range of motion, Circulation is intact in all extremities. Sensation intact. Compartment Syndrome exam of affected extremity: is normal. Joints: All joints appear normal with full range of motion. Weight bearing: able to fully bear weight, Tendon exam: specific tendon testing normal through active and passive range of motion DVT Exam: no swelling, negative Homans' sign noted on exam, no appreciated bluish discoloration, no erythema, no increased warmth, pain, tenderness, Calves: have equal circumference, Vital Signs: 07:18 BP 174 / 99; Pulse 87; Resp 18; Temp 98.8(O); Pulse Ox 99% on R/A; Weight 97.52 kg; ap3 Height 5 ft. 11 in. ; Pain 3/10; 08:15 BP 151 / 98; Pulse 86; Resp 16; Pulse Ox 95% ; bp 09:01 BP 155 / 91; Pulse 84; Resp 16; Pulse Ox 100% ; bp 07:18 Body Mass Index 29.99 (97.52 kg, 180.34 cm) ap3 07:18 Pain Scale: Adult ap3 MDM: 07:14 Patient medically screened. [facility] 07:29 Differential diagnosis: contusion, tendonitis. Data reviewed: vital signs, nurses [facility] notes, lab test result(s), radiologic studies, doppler. Consideration of Admission/Observation Escalation of care including admission/observation considered. I considered the following discharge prescriptions or medication management in the emergency department Medications were administered in the Emergency Department. See MAR. Independent interpretation of the following test(s) in the Emergency Department Radiology Department Ultrasound: My interpretation is venous doppler. 09/18 07:16 Order name: CBC with Diff; Complete Time: 08:28 [facility] 09/18 07:16 Order name: Comprehensive Metabolic Panel; Complete Time: 08:28 [facility] 09/18 07:16 Order name: PT-INR; Complete Time: 08:28 [facility] 09/18 07:16 Order name: Urinalysis w/ reflexes [facility] 09/18 07:16 Order name: US Extremity Venous W Compression Keith; Complete Time: 08:28 jose m Administered Medications: 07:45 Drug: NS 0.9% IV 1000 ml IV at 1 bolus Per protocol; 1000 mL bolus Route: IV; Rate: 1 bp bolus; Site: right forearm; 09:03 Follow up: IV Status: Completed infusion; IV Intake: 1000ml bp 07:45 Drug: Ketorolac IVP 30 mg IVP once Route: IVP; Site: right forearm; bp 09:04 Follow up: Response: No adverse reaction bp Disposition Summary: 09/19/23 08:28 Discharge Ordered Notes: Location: Home jose m Problem: new jose m Symptoms: have improved jose m Condition: Stable jose m Diagnosis - Unspecified symptoms and signs involving the musculoskeletal system jose m - Pain in right lower leg jose m Followup: jose m - With: Private Physician - When: 2 - 3 days - Reason: Recheck today's complaints, Continuance of care, Re-evaluation by your physician Followup: jose m - With: Michelet Dempsey MD - When: 2 - 3 days - Reason: Recheck today's complaints, Re-evaluation by your physician Discharge Instructions: - Discharge Summary Sheet jose m - Musculoskeletal Pain jose m Forms: - Medication Reconciliation Form jose m - Antibiotic Education jose m - Prescription Opioid Use jose m - Patient Portal Instructions jose m - Leadership Thank You Letter [facility] Prescriptions: - Diclofenac Sodium 75 mg Oral tablet, delayed release (enteric coated) - take 1 tablet ORAL route 2 times per day; 20 tablet; Refills: 0, Product jsoe m Selection Permitted - Cyclobenzaprine 5 mg Oral Tablet - take 1 tablet ORAL route 3 times per day As needed; 15 tablet; Refills: 0, jose m Product Selection Permitted Signatures: Dispatcher [employer] Freddy Keller MD MD cha Peltier, Brian, RN RN Briseyda Pena RN RN ap3 Corrections: (The following items were deleted from the chart) 07:17 07:17 CBC+H.LAB.BRZ ordered. EDMS EDMS 07:17 07:17 COMPREHENSIVE METABOLIC PANEL+C.LAB.BRZ ordered. EDMS EDMS 07:17 07:17 PROTIME (+INR)+COAG.LAB.BRZ ordered. EDMS EDMS 07:17 07:17 Urinalysis+U.LAB.BRZ ordered. EDMS EDMS 07:17 07:17 Extrem Venous W Compression Keith+US.RAD.BRZ ordered. EDMS EDMS
[2023-09-19 08:34] LABS: Specific Gravity 1.008 (1.005-1.030); Urine Bilirubin NEGATIVE (Negative); Urine Blood Negative (Negative); Urine Clarity Clear (Clear); Urine Color Light-Yellow (Yellow); Urine Glucose NEGATIVE (Negative); Urine Ketones 1+ (Negative); Urine Microscopic Reflex YN NO UMIC; Urine Nitrite NEGATIVE (Negative); Urine Protein NEGATIVE (Negative); Urine Urobilinogen Normal (Normal); Urine pH 6.5 (5.0-7.0)
[2023-09-19 09:15] VITALS: BP 155/91; TEMP 98.8; O2SAT 100
== END 2023-09-19 09:04 | disposition home or self-care (01) ==
LOC: ER 07:08
DX: R29.91 Unspecified symptoms and signs involving the musculoskeletal system (principal)
CPT/HCPCS: 96361; 85025; 36415; 85610; 81003; 80053; 93970; 96374; 99284; J7030